=== PATIENT | male | born 1955 | race African-American/Black ===

== ENCOUNTER 2022-04-20 10:30 | Outpatient (REF) | payer MEDICARE, SELFPAY ==
[2022-04-20 11:52] LABS: Hematocrit 43.6 % (42.0-52.0); Hemoglobin 14.6 g/dl (14.0-18.0); Mean Corpuscular HGB Conc 33.5 g/dl (31.0-36.0); Mean Corpuscular Hemoglobin 29.9 pg (27.0-33.0); Mean Corpuscular Volume 89.3 fL (80.0-98.0); Mean Platelet Volume 11.7 fL (9.4-12.4); Platelet Count 237 X10*3/uL (160-400); Red Blood Count 4.88 X10*6/uL (4.60-5.80); Red Cell Distribution Width 13.6 % (11.0-16.0); White Blood Count 7.7 X10*3/uL (4.8-10.8)
[2022-04-20 11:53] LABS: Appearance Urine Clear; Color Urine Yellow; Glucose Urine UA Negative (Negative); Leukocyte Esterase Urine Negative (Negative); Nitrite Urine Negative (Negative); Urine Blood Negative (Negative); Urine Ketones Negative (Negative); Urine Protein Trace mg/dL (Neg-Trace)
[2022-04-20 12:51] LABS: Alanine Aminotransferase 20 U/L (0-40); Albumin Level 4.5 g/dL (3.5-5.0); Alkaline Phosphatase 74 U/L (39-117); Anion Gap 15 (12-20); Aspartate Amino Transferase 25 U/L (5-37); Bilirubin Direct 0.2 mg/dL (0.0-0.5); Bilirubin Total 0.6 mg/dL (0.0-1.0); Blood Urea Nitrogen 16 mg/dL (9-16); Calcium 9.4 mg/dL (8.4-10.2); Carbon Dioxide 27 mmol/L (22-29); Chloride 103 mmol/L (96-108); Cholesterol 238 mg/dL; Estimated Glomerular Filt Rate > 60; Glucose Random 95 mg/dL (60-115); HDL Cholesterol 45 mg/dL; LDL Cholesterol Calculated 176 mg/dl; Potassium 4.8 mmol/L (3.3-5.1); Sodium 140 mmol/L (135-145); Total Protein 7.5 g/dL (6.5-8.0); Triglycerides 87 mg/dL
[2022-04-20 12:59] LABS: Thyroid Stimulating Hormone 1.56 uIU/mL (0.32-4.0)
== END 2022-04-20 10:31 | disposition home or self-care (01) ==
LOC: HO.LAB 10:30
PROVIDERS: PCP Internal Medicine; Visit Provider Internal Medicine
DX: I10 Essential (primary) hypertension (principal)
CPT/HCPCS: 36415; 80048; 80061; 80076; 81003; 84443; 85027

== ENCOUNTER 2024-09-06 12:48 | Outpatient (AMB) | payer MEDICARE, SELFPAY ==
--- NOTE | 2024-09-06 13:13 | A.OFFPC_ITS ---
Vital Signs 09/06/24 13:15 Height 5 ft 10 in Weight 195 lb 4 oz BMI 28.0 BP 130/72 Blood Pressure Location Lt brachial Position Sitting Pulse 74 Pulse Source Pulse Oximeter Temp 97.5 F Temp Source Temporal Artery Scan Pulse Oximetry (%) 98 Oxygen Delivery Method Room Air Intake Visit Reasons: physical Intake Note: Patient is here today for a physical. Hotel Front Office Manager Required: No Change Booth Attendant: Not Required per policy Accompanied by: Self / Same As Patient Allergies No Known Allergies Allergy (Verified 09/06/24 13:39) Medication List - Last Reconciled 09/06/24 by Suleman Lepe MD No Known Home Meds Tobacco use date assessed: 09/06/24 Fall risk assessment: No Falls in past year Last assessed Fall Risk: 09/06/24 Dental Screening Dental Screen Date: 09/06/24 Did you have a dental visit in the last 12 months?: Yes Did you have a dental problem in the last 6 months where you did not have access to dental care?: No Was dental information given to patient?: Patient has dentist [facility], [facility] Medical History Essential hypertension Surgical History History of total splenectomy Social History Housing: House Alcohol intake: current Alcohol intake frequency: holidays/special occasions only Patient Tobacco Use Status: Never used Tobacco e-Cigarette/Vaping Use: Never Used Second Hand Smoke Exposure: No service: No Current occupational status: retired Cognitive needs: No Hearing needs: No Vision needs: No Questionnaire PHQ-9 Over the last 2 weeks, how often have you been bothered by any of the following problems? 1. Little interest or pleasure in doing things: not at all 2. Feeling down, depressed, or hopeless: not at all 3. Trouble falling or staying asleep, or sleeping too much: not at all 4. Feeling tired or having little energy: not at all 5. Poor appetite or overeating: not at all 6. Feeling bad about yourself - or that you are a failure or have let yourself or your family down: not at all 7. Trouble concentrating on things, such as reading the newspaper or watching television: not at all 8. Moving or speaking so slowly that other people could have noticed. Or the opposite - being so fidgety or restless that you have been moving around a lot more than usual: not at all 9. Thoughts that you would be better off or of hurting yourself in some way: not at all Total score: 0 Depression Screening Interpretation: Negative Depression Screening Done: Yes Source: Developed by Drs. Farhad Lockwood, Eladia sEcalera, Santino Gandara and colleagues, with an educational adalid from [employer]. Thrive Questionnaire Date Thrive assessed: 09/06/24 I am a: Patient What is your living situation today?: I have a steady place to live Within the past 12 months, did the food you bought not last and you didn't have the money to get more?: Never true Within the past 12 months, did you worry whether your food would run out before you got money to buy more?: Never true Do you have trouble paying for medicines?: No Do you have trouble getting transportation to medical appointments?: No Do you have trouble paying your heating and electricity bill?: No Do you have trouble taking care of your child, family member or friend?: No Do you have trouble with day-to-day activities such as bathing, preparing meals, shopping, managing finances, etc.?: No Are you currently unemployed and looking for a job?: No Are you interested in more education?: No Please select the resources that you would like help with: None Currently or been in a relationship where the following occur: No concerns reported THRIVE Score: 0 AUDIT C Alcohol Use Questionnaire (AUDIT-C) 1. How often do you have a drink containing alcohol?: Monthly or less 2. How many drinks containing alcohol do you have on a typical day when you are drinking?: 1 or 2 Total Score: 1 SHANNAN-7 AMB Questionnaire SHANNAN-7 Date SHANNAN - 7 assessed: 09/06/24 Feeling nervous, anxious, or on edge: 0 = Not at all Not being able to stop or control worryin = Not at all Worrying too much about different things: 0 = Not at all Trouble relaxin = Not at all Being so restless that it is hard to sit still: 0 = Not at all Becoming easily annoyed or irritable: 0 = Not at all Feeling afraid as if something awful might happen: 0 = Not at all Total SHANNAN-7 score (0-4 normal; 5-9 mild; 10-14 moderate; 15-21 severe): 0 Source: Developed by Drs. Farhad Lockwood, Eladia Escalera, Santino Gandara and colleagues, with an educational adalid from [employer]. Physical exam (Primary Care) Vital Signs: Last Vital Signs Temp 97.5 F 09/06/24 13:15 Oxygen Delivery Method Room Air 09/06/24 13:15 BMI result Body Mass Index 28.0 Tobacco/Smoking Status: Tobacco use Status Tobacco use date assessed 04/20/22 07/23/24 16:33 Patient Tobacco Use Status Never used Tobacco 09/06/24 13:21 e-Cigarette/Vaping Use Never Used 09/06/24 13:21 Depression Screening Interpretation: Negative Thrive Assessment: Date of Thrive Assessment Date Thrive assessed 04/20/22 07/23/24 16:33 Currently or been in a relationship where the following occur: No concerns reported Coding Level of Care Code New Pt Prev Care >65yr (57553) Diagnoses Essential hypertension I10 Annual physical exam Z00.00 Assessment & Plan Assessment & Plan (1) Essential hypertension: Code(s): I10 - Essential (primary) hypertension Category: Medical Plan: BP is in range. Currently on no medications (2) Annual physical exam: Code(s): Z00.00 - Encounter for general adult medical examination without abnormal findings Category: Medical Plan: History of Present Illness The patient is a 69-year-old male presenting for a wellness examination. He reports musculoskeletal discomfort primarily in the shoulder, linked to a known cervical disc issue. This pain started two months ago and has resisted improvement through chiropractic maneuvers. He actively assists his son with tasks rather than engaging in organized physical activity. The upper respiratory symptoms began recently, presenting as nasal congestion and rhinorrhea, suggestive of either allergic rhinitis or an upper respiratory tract infection. No treatment has been pursued due to the mild nature of symptoms and the absence of a systemic impact. There is evident anxiety that now accompanies driving over bridges, which signals a shift in the patient's previous comfort with driving long distances. The patient remains in stable health but acknowledges lapses in wellness exams and has not engaged in recommended screenings such as colonoscopy, largely due to reluctance to pursue asymptomatic conditions. Social History - Retired and enjoys spending time relaxing. - Occasionally assists his son with tasks. - Does not exercise in a gym but is physically active at home. - No significant travel activities due to anxiety and discomfort associated with driving over bridges. Review of Systems - Musculoskeletal: Reports shoulder discomfort, attributed to cervical disc issues. - Respiratory: Reports nasal congestion and rhinorrhea; denies significant f ever, cough, or systemic symptoms. - Psychological: Reports anxiety related to driving over bridges. Physical Exam General: Appearance normal, both eyes and all related structures Nutritional Appearance: Well nourished Orientation/consciousness: Patient oriented x3 Limitations: No limitations Head: Normal to inspection Neck: Issues noted due to disc problem Chest: Normal palpation of entire chest wall Respiratory: Normal respiratory effort Neurology: Patient oriented x3 Results Plan The patient is advised to continue monitoring musculoskeletal symptoms related to the shoulder, with a recommendation for physical therapy if pain continues. His current upper respiratory complaints are likely due to either allergic rhinitis or a viral infection, thus requiring symptomatic treatment only. Anxiety associated with driving over bridges will be observed, and further action will be considered if it interferes with daily activities. Routine laboratory work has been ordered as part of this wellness evaluation, and I have discussed but not mandated a colonoscopy due to patient reluctance. We will re- assess his willingness to proceed with this procedure at a future appointment. Patient was informed and verbally consented to the use of an ambient scribe for clinic note documentation during this visit. Discussion Notes During the visit, we discussed the management of the patient's musculoskeletal pain, highlighting the potential benefits of physical therapy if symptoms do not resolve. I explained the self-limiting nature of his presumed respiratory infection or allergies. We explored the patient's anxiety related to driving and agreed to monitor the situation. Additionally, while advising on routine wellness screenings, I thoroughly detailed the purpose and potential benefits of a colonoscopy despite the patient's reservations. I assured that results of any ordered laboratory tests would be communicated promptly. Future management plans include reassessing the need and patient's willingness for screenings like a colonoscopy. Patient Instructions - Monitor shoulder and neck discomfort; consider gentle exercises at home. - Manage respiratory symptoms with [id number] antihistamines or decongestants as tolerated. - Observe any changes in driving anxiety; keep a record of any contributing factors. - Await blood work results; follow up if notified. - Consider discussing routine screenings again during the next wellness visit. Orders: Orders Basic Metabolic Panel Today I10 - Essential (primary) hypertension, Z00.00 - Encounter for general adult medical examination without abnormal findings Lipid Panel Today I10 - Essential (primary) hypertension, Z00.00 - Encounter for general adult medical examination without abnormal findings Thyroid Stimulating Hormone Today I10 - Essential (primary) hypertension, Z00.00 - Encounter for general adult medical examination without abnormal findings Liver Panel Today I10 - Essential (primary) hypertension, Z00.00 - Encounter f or general adult medical examination without abnormal findings Complete Blood Count no Diff Today I10 - Essential (primary) hypertension, Z00.00 - Encounter for general adult medical examination without abnormal findings UA and rflx microscopic Today I10 - Essential (primary) hypertension, Z00.00 - Encounter for general adult medical examination without abnormal findings
[2024-09-06 13:15] VITALS: BP 130/72; PULSE 74; TEMP 36.4; O2SAT 98; BMI 28.0
== END 2024-09-06 13:46 | disposition home or self-care (01) ==
PROVIDERS: PCP Internal Medicine; Visit Provider Internal Medicine
DX: I10 Essential (primary) hypertension (principal); Z00.00 Encounter for general adult medical examination without abnormal findings

== ENCOUNTER → 2024-09-06 12:48 | Outpatient (BNVA) | payer MEDICARE, SELFPAY | PROVIDERS: PCP Internal Medicine; Visit Provider Internal Medicine | DX: Z00.00 Encounter for general adult medical examination without abnormal findings (principal); I10 Essential (primary) hypertension | CPT/HCPCS: 99387 ==

== ENCOUNTER 2025-04-24 13:00 | Outpatient (REF) | payer MEDICARE, SELFPAY ==
[2025-04-24 14:49] LABS: Hematocrit 44.2 % (42.0-52.0); Hemoglobin 14.9 g/dl (14.0-18.0); Mean Corpuscular HGB Conc 33.7 g/dl (31.0-36.0); Mean Corpuscular Hemoglobin 30.3 pg (27.0-33.0); Mean Corpuscular Volume 90.0 fL (80.0-98.0); NRBC Abs Auto 0.000 X10*3/uL (0.0-0.012); NRBC Pct Auto 0.0 /100WBC (0.0-0.2); Platelet Count 213 X10*3/uL (160-400); Red Blood Count 4.91 X10*6/uL (4.60-5.80); WBC ABN SCTR FOR CBC 1
[2025-04-24 16:20] LABS: Alanine Aminotransferase 25 U/L (0-40); Albumin Level 4.6 g/dL (3.5-5.0); Alkaline Phosphatase 83 U/L (39-117); Anion Gap 8 (12-20); Aspartate Amino Transferase 67 U/L (5-37); Blood Urea Nitrogen 19 mg/dL (9-16); Calcium 9.3 mg/dL (8.4-10.2); Carbon Dioxide 28 mmol/L (22-29); Chloride 109 mmol/L (96-108); Cholesterol 204 mg/dL (<200); Estimated Glomerular Filt Rate 57; HDL Cholesterol 40 mg/dL (>40); Potassium 4.3 mmol/L (3.3-5.1); Sodium 141 mmol/L (135-145); Total Protein 7.8 g/dL (6.5-8.0); Triglycerides 293 mg/dL (<150)
[2025-04-24 20:03] LABS: Band Neutrophils Percent 0 % (3-5); Eosinophils Percent Manual 4 % (0-4); Lymphocytes Percent Manual 20 % (20-40); Monocytes Percent Manual 4 % (2-11); Neutrophils Percent Manual 72 % (45-73)
[2025-04-24 20:05] LABS: RBC Morphology NORMAL
[2025-04-24 20:06] LABS: Eosinophils Absolute Manual 0.4 X10*3/uL (0.0-0.4); Lymphocytes Absolute Manual 1.8 X10*3/uL (1.2-4.9); Monocytes Absolute Manual 0.4 X10*3/uL (0.1-1.2); Neutrophils Absolute Manual 6.5 X10*3/uL (2.0-8.3); White Blood Count 9.0 X10*3/uL (4.8-10.8)
== END 2025-04-24 13:01 | disposition home or self-care (01) ==
LOC: HO.LAB 13:00
PROVIDERS: PCP Internal Medicine; Visit Provider Internal Medicine
DX: Z01.818 Encounter for other preprocedural examination (principal); M26.9 Dentofacial anomaly, unspecified; H61.20 Impacted cerumen, unspecified ear; R03.0 Elevated blood-pressure reading, without diagnosis of hypertension; H26.9 Unspecified cataract; Z87.892 Personal history of anaphylaxis
CPT/HCPCS: 36415; 80053; 80061; 82248; 84443; 85007; 85027